=== PATIENT | female | born 1970 | race Caucasian/White ===

== ENCOUNTER → 2020-11-11 17:34 | Outpatient (CLI) | payer MEDICAID, SELFPAY ==
--- NOTE | 2020-11-11 17:43 | CT_ITS ---
STUDY: CT ABDOMEN AND PELVIS WITHOUT CONTRAST REASON FOR EXAM: Female, 50 years old. Painless hematuria. ? kidney stones. Bilateral breast implants, single oopherectomy and and quot;tummy tuck and quot; RADIATION DOSAGE (If Supplied By Facility): CTDIvol = ( 7.11 ) mGy, DLP = ( 362.49 ) mGycm TECHNIQUE: Transaxial images were obtained from the dome of the diaphragm to the symphysis pubis without oral contrast, and without intravenous contrast. Sagittal and coronal images were reconstructed. Individualized dose optimization techniques were used for this CT. COMPARISON: None. FINDINGS: The visualized lung bases are unremarkable. The visualized portions of the heart are within normal limits. Bilateral breast implants identified. Normal liver. The gallbladder is contracted. Normal spleen. Normal pancreas. Normal bilateral adrenal glands. No hydronephrosis or discrete calculi although there is mild hyperdensity of the bilateral renal medulla. No ureteral calcifications. Curvilinear calcification in the central right kidney on image 51 measures 8 mm, suggesting a central renal artery aneurysm. 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 Normal small intestine. Normal colon. There is non-visualization of the appendix. Normal abdominal aorta. Normal inferior vena cava. Normal retroperitoneum. Normal urinary bladder. There is absence of the uterus consistent with a prior hysterectomy. Normal abdominal wall. Normal osseous structures. CT/Abdomen/Pelvis without Cont IMPRESSION: 1. No hydronephrosis or ureteral calculi. 2. Hyperdense bilateral renal medulla can be associated with medullary nephrocalcinosis. 3. 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 Recommend additional evaluation with CTA, if clinically appropriate. No comparison study. Electronically Signed: Thong Coles MD ([place]) at 15:18 EST , Service support ,
== END ==
PROVIDERS: PCP Family Medicine; Referring Provider Urology; Visit Provider Urology
DX: N20.0 Calculus of kidney (principal)
CPT/HCPCS: 74176